=== PATIENT | female | born 1935 | race African-American/Black ===

== ENCOUNTER → 2018-05-27 | Outpatient (CLI) | payer OTHER, MEDICARE ==
[~2018-05-27] MED LIST: AMARYL2 MG PO; ASPIRIN EC81 M1 PO; BYSTOLIC10 MG PO; CELEBREX; CENTRUM TABLET1 TAB PO; FISH OIL 1,0001 EAC5 PO; GLUCOPHAGE1000 MG PO; HYDROCHLOROTHIA25 M1 PO; HYDROCODON-ACE1 EAC7 PO; LIPITOR40 MG PO; LISINOPRIL20 MG PO; MEDROLDOSEPACK PO; NAPROSYN250 MG PO; NORCO 5-325 TA1 EACH; NORVASC 2.5 MG2.5 MG PO; PERCOCET 5-3251 EACH PO; PROTONIX40 M2 PO; ROBAXIN 750 MG750 M1 PO; SYNTHROID100 MCG PO
== END ==
LOC: CAT 10:44
DX: M47.812 Spondylosis without myelopathy or radiculopathy, cervical region (principal); M48.02 Spinal stenosis, cervical region; R20.0 Anesthesia of skin; R29.898 Other symptoms and signs involving the musculoskeletal system; Z98.1 Arthrodesis status

== ENCOUNTER 2018-06-21 15:56 | Inpatient (IN) | payer OTHER, MEDICARE ==
[~2018-06-21] VITALS: Ht 162.6 cm; Wt 70.4 kg
[~2018-06-21 15:56] MED LIST changes: +AMARYL4 MG PO; +AMLODIPINE BESY10 MG PO; +CYCLOBENZAPRINE5 MG PO; +LOPRESSOR50 PO; +METFORMIN HCL500 MG PO; +SYNTHROID25 MC1 PO; +TRAMADOL 50 MG50 MG PO
--- NOTE | 2018-06-21 16:59 | NUR ---
1600 ADMITTED TO ROOM 514. PATIENT IS ALERT AND ORIENTED X4. PATIENT HAS LEFT AND RIGHT HAND WEAKNESS, WELL LOWER EXTREMITY WEAKNESS. PATIENT HAS A NECK COLLAR ON. LUNGS ARE CLEAR. ABD IS SOFT, AND ROUND WITH BSX4. UP TO THE BSC WITH ASSIST OF 2 STAFF. NO EDEMA IN HER LOWER EXTREMITIES. PATIENT IS DIABETIC AND ON LOW DOSE S.S. INSULIN. P.T. HERE TO DO EVAL. OT EVAL AND ST EVAL TO BE ON MON. DAUGHTER IN ROOM. FALL AND SAFETY PROTOCOLS IN PLace. PATIENT HAS PAIN IN HER NECK. MEDICATED WITH TRAMADOL PRIOR TO LEAVING [facility]. DRESSING TO NECK IS DRY AND INTACK. WILL CONTINUE TO MONITER.
[2018-06-21 21:30] VITALS: BP 133/72
--- NOTE | 2018-06-22 03:09 | NUR ---
assumed care at approx 1900 evening 06/21. pt lying in bed with head of bed elevated, alert and oriented x4 with c collar in place. pt stated she had not had a bm for several days. pt given supp at bedtime and pt has now had 2-3 small bms and 1 large bm. pt appears to be sleeping soundly at present. call light in reach. bed alarm in place. will continue to monitor.
[2018-06-22 04:27] LABS: HEMATOCRIT 35.7 % (37.0-47.0); HEMOGLOBIN 11.6 gm/dL (12.0-15.0); MCH 27.8 pg (26.0-34.0); MCHC 32.6 g/dL (28.0-37.0); MCV 85.3 fL (80.0-100.0); RBC 4.19 mil/uL (4.20-5.00); RDW 14.2 % (10.5-14.5); WBC 13.3 thou/uL (4.0-11.0)
[2018-06-22 04:38] LABS: CALCIUM 9.7 mg/dL (8.5-10.1); CREATININE 0.9 mg/dL (0.6-1.0); MAGNESIUM 1.6 mg/dL (1.8-2.4); POTASSIUM 3.5 mmol/L (3.5-5.1)
[2018-06-22 07:50] VITALS: BP 146/70
--- NOTE | 2018-06-22 09:35 | NUR ---
ASSUMED CARE AT 0700. PATIENT IS ALERT AND ORIENTED X4. PATIENT HAS C-COLLAR ON AND INPLACE. PATIENT UP TO THE W/C FOR BREAKFAST. PATIENT UP WITH ASSIST OF 1 STAFF, GAIT BELT AND WALKER TO THE BSC. LUNGS ARE CLEAR. ABD IS SOFT WITH BSX4. FALL AND SAFETY PROTOCOLS IN PLACE. DENIES PAIN AT THIS TIME. WILL CONTINUE TO MONITER. NECK DRESSING IS DRY AND INTACT.
[2018-06-22 20:55] VITALS: BP 143/74
--- NOTE | 2018-06-23 03:42 | NUR ---
PATIENT IS ALERT AND ORIENETED. PATIENT IS UP 1-2 WITH GAIT BELT AND WLAKER. PATIENT HAS AN INSICION ON ANTIEIOR NECK DRESSING CLEAN DRY INTACT. PATIENT WEARS A C-COLLOR PT AND OT CONSULTED. PATIENTS LBM WAS THE 26TH PER PATIENT THE 28TH PER NURSING STAFF. PATIENT DENIES PAIN. PATIENT IS RESTING COMFORTABLY IN BED. WCM. PATIENT IS PROGRESSING TO GOALS. WCM.
[2018-06-23 08:00] VITALS: BP 142/77
--- NOTE | 2018-06-23 09:31 | NUR ---
Nutrition: assess d/t consult for difficulty eating. Pt admitted following cervical surgery; hx of DM and HTN. Pt states that her appetite is fine, she just doesn't like some of the foods served. Explained how to order meals, obtained food preferences. She would like to have strawberry Glucerna, will order BID. With nutrition intervention in place, consider low risk at this time.
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
--- NOTE | 2018-06-23 14:26 | NUR ---
ASSUMED CARES AT 0700. PT AWAKE, ALERT AND ORIENTED *4 BUT FORGETFUL. VITALS REMAIN STABLE. PT DENIES PAIN. NECK COLLAR REMAINS INTACT AND IN PLACE. DRESSING ON ANTERIOR NECK REMAINS DRY AND INTACT. PT CONTINUES TO HAVE LEFT SIDED WEAKNESS, UNABLE TO GRASP WITH LEFT UPPER EXTREMITY. MILD EDEMA IN BLE. PT UP WITH 1 PERSON MIN ASSIST, GAITBELT AND WALKER. AMBULATED WITH PT AND TOLERATED WELL. Q1H VISUAL CHECKS. CALL LIGHT WITHIN REACH. FALL PRECAUTIONS IN PLACE
[2018-06-23 19:54] VITALS: BP 140/83
--- NOTE | 2018-06-24 03:55 | NUR ---
assumed care at approx 1900 evening 06/23. pt sitting up in recliner at change of shift resting and visiting with daughter at bedside. pt pleasant and cooperative, alert and oriented x4. pt wearing c collar at all times. pt up to bathroom to void with 1 assist before bedtime. pt appears to be sleeping soundly with hourly rounding checks. bed alarm on and call light in reach. will continue to monitor.
[2018-06-24 05:33] LABS: HEMATOCRIT 34.7 % (37.0-47.0); HEMOGLOBIN 11.5 gm/dL (12.0-15.0); MCH 28.1 pg (26.0-34.0); MCHC 33.2 g/dL (28.0-37.0); MCV 84.7 fL (80.0-100.0); RBC 4.09 mil/uL (4.20-5.00); RDW 13.8 % (10.5-14.5); WBC 9.2 thou/uL (4.0-11.0)
[2018-06-24 05:40] LABS: PLATELET COUNT 348 thou/uL (150-400)
[2018-06-24 05:55] LABS: CALCIUM 9.9 mg/dL (8.5-10.1); CREATININE 0.8 mg/dL (0.6-1.0); MAGNESIUM 1.5 mg/dL (1.8-2.4); POTASSIUM 3.7 mmol/L (3.5-5.1)
[2018-06-24 06:16] LABS: ABSOLUTE NEUTROPHILS 4.7 thou/uL (1.4-8.2)
[2018-06-24 06:17] LABS: ANISOCYTOSIS 1+; LARGE PLATELETS FEW; PLATELET ESTIMATE NORMAL; POLYCHROMASIA 1+
[2018-06-24 08:24] VITALS: BP 133/79
[2018-06-24 08:49] LABS: FOLIC ACID 16.6 ng/mL (8.6-58.9)
--- NOTE | 2018-06-24 10:04 | NUR ---
ASSUMED CARE AT 0700. PATIENT IS ALERT AND ORIENTED X4. PATIENT HAS C-COLLAR IN PLACE. PATIENT SCHERER'S. HANDS ARE WEAK, LEGS ARE WEAK. LUNGS ARE CLEAR. ABD IS SOFT WITH BSX4. UP TO THE BATHROOM TO VOID NADEGE COLORED URINE. FALL AND SAFETY PROTOCOLS IN PLACE. C/O NECK PAIN. MEDCIATED WITH PRN PAIN MED. CONTINUES TO PROGRESS TOWARDS D/C GOALS. WILL CONTINUE TO MONITER
--- NOTE | 2018-06-24 12:50 | NUR ---
team meeting, recommendation: re team with dc 07/07/18 initial 24hr supervision , home health ( pt, ot, st, nursing), daughter for family training
[2018-06-24 19:10] VITALS: BP 130/65
--- NOTE | 2018-06-25 04:12 | NUR ---
ASSUEMD CARE FROM PREVIOUS SHIFT PT VISITING WITH DAUGHTER, DNEIS PAIN C-COLLAR INTACT , PT CALL FOR ASSISSTANCETO BATHRROM WNEEDING ASSIST OF ONE TOLERATING AMBULATING WITHOUT DIFF. DISCUSSED PLAN CARE AND AGREEABLE AND VERBALIZED UNDERSTANDING.
[2018-06-25 07:30] VITALS: BP 122/76
--- NOTE | 2018-06-25 10:09 | NUR ---
ASSUMED CARES AT 0700. PT AWAKE, ALERT AND ORIENTED*4. DENIES PAIN. VITALS REMAINED STABLE. CERVICAL COLLAR REMAINS IN PLACE. INCISION ON ANTERIOR NECK REMAINS INTACT. STERI STRIPS REMAIN IN PLACE AND INTACT. PT UP WITH 1 PERSON MIN ASSIST, GAITBELT WALKER AND TOLERATED WELL. Q1H VISUAL CHECKS. CALL LIGHT WITHIN REACH. FALL PRECAUTIONS IN PLACE
--- NOTE | 2018-06-25 16:09 | NUR ---
Patient participated in community reintegration on 06/25/18 with OT. Refer to documentation by OT.
[2018-06-25 19:42] VITALS: BP 144/58
--- NOTE | 2018-06-26 01:07 | NUR ---
ASSUMED CARE AT APPROX 1900 EVENING 06/25. PT ALERT AND ORIENTED X4, APPROPRIATE AND COOPERATIVE. PT WEARING C COLLAR. PT UP TO TOILET WITH 1 ASSIST WITH WALKER. PT C/O HER LIPS SWOLLEN APPROX 2300 STATING SHE HAD SOME LETTUCE FOR DINNER AND SHE IS ALLERGIC TO IT. ORDER RECD FOR BENADRYL AND GIVEN TO PT. PT HAS NOT CALLED OUT SINCE AND APPEARS TO BE SLEEPING SOUNDLY AT PRESENT. BED ALARM ON AND CALL LIGHT IN REACH. WILL CONTINUE TO MONITOR.
--- NOTE | 2018-06-26 07:15 | NUR ---
PT CALLED OUT APPROX 0400 ASKING FOR MORE BENADRYL. BILLER CALLED AND ORDER RECD FOR ONETIME DOSE OF BENADRYL, 50MG PO. PT WITH INCREASED SWELLING TO LIPS AND CHEEK/FACIAL AREA. PT NOT COMPLAINING OF ANY TROUBLE BREATHING AND PT ABLE TO TAKE LIQUEFACTION AND REGASIFICATION HELPER MEDS WITH WATER WITH NO PROBLEM. PT ABLE TO REST AFTER 2ND DOSE OF BENADRYL GIVEN. C COLLAR NOT WITH ANY INCREASED TIGHTNESS AND PT DENIES INCREASED DISCOMFORT WITH COLLAR. PT RESTING IN BED AT PRESENT. REPORT GIVEN TO DAY NURSES. CALL LIGHT IN REACH.
[2018-06-26 08:41] VITALS: BP 137/76
--- NOTE | 2018-06-26 17:40 | NUR ---
ASSUMED CARE OF PATIENT AT 0715. PATIENT IS A&OX4 WITH PERIODS OF FORGETFULNESS, VITAL SIGNS ARE STABLE. PATIENT OBSERVED THIS MORNING TO HAVE SIGNIFICANT SWELLING IN THE LIPS AND CHEEKS, PATIENT ABLE TO MAINTAIN PATENT AIRWAY. PATIENT REPORTS THAT INCREASED SWELLING IS DUE TO HAVING EATEN LETTUCE, WHICH SHE STATED SHE IS ALLERGIC TO, ALLERGY LIST UPDATED WITH PATIENT AND ORDERS OBTAINED FOR REACTION. SWELLING DECREASED SIGNIFICANTLY THROUGHOUT SHIFT. CERVICAL COLLAR IN PLACE, STERI STRIPS TO INCISION ON NECK CLEAN, DRY, AND INTACT. PATIENT TRANSFERS AND AMBULATES WITH 1 PERSON ASSIST WITH GAIT BELT AND WALKER. PATIENT HAD DIFFICULTIES WITH SWALLOWING NOTED BY SPEECH THERAPIST AND MEDICAITONS ARE NOW BEING GIVEN ONE AT A TIME WITH APPLESAUCE, WHICH PATIENT HAS TOLERATED WELL. FALL PRECAUTIONS IN PLACE AND NURSING WILL CONTINUE TO MONITOR PATIENT.
[2018-06-26 20:13] VITALS: BP 122/77
--- NOTE | 2018-06-27 05:01 | NUR ---
UP TO BATHROOM WITH STEADY GAIT, KEEPS CERVICAL COLLAR ON AT ALL TIMES. ABLE TO SWALLOW MEDS WHOLE WITH APPLESAUCE WITH SIPS OF WATER AFTERWARDS. PLEASANT
[2018-06-27 07:30] VITALS: BP 124/76
--- NOTE | 2018-06-27 19:18 | NUR ---
ASSUMED CARE OF PATIENT AT 0715. PATIENT IS A&OX4 AND VITAL SIGNS ARE STABLE. PATIENT HAS CERVICAL COLLAR IN PLACE AND STERI STRIPS TO SURGICAL INCISION SITE ARE IN PLACE AND INCISION WELL APPROXIMATED. PATIENT EXPRESSED CONCERN THAT SHE WAS NOT ALLOWED TO HAVE COFFEE ON DIET, PASTEURIZER NOTIFIED OF CONCERN AND ORDERS CHANGED TO REGULAR DIET. PATIENT HAS HAD INCREASED DIFFICULTY WTIH SWALLOWING THIS SHIFT. ST CONSULTED AND DECISSION MADE TO CRUSH ALL MEDICATIONS IN APPLESAUCE D/T SIGNIFICANT COUGHING FOLLOWING MEDICATION ADMINISTRATION. PATIENT REPORTS NO PAIN AT THIS TIME, PARTICIPATED IN SCHEDULED THERAPIES THIS SHIFT. FALL PRECAUTIONS ARE IN PLACE AND NURSING WILL CONTINUE TO MONITOR PATIENT.
[2018-06-27 22:08] VITALS: BP 133/85
--- NOTE | 2018-06-28 01:26 | NUR ---
CRUSHING MEDS IN APPLESAUCE WITH PATIENT NOTING BITTER TASTE OF GABAPENTIN AND, WE THINK, METFORMIN. UP TO BATHROOM WITH STEADY GAIT, CERVICAL COLLAR ON AT ALL TIMES. BLOOD SUGAR >250 WAS TAKEN SOON AFTER EATING A STRAWBERRY MILKSHAKE FROM "[employer]" ENCOURAGED TO CALL FOR ASSIST UP, BED ALARM ON
[2018-06-28 09:02] VITALS: BP 149/87
--- NOTE | 2018-06-28 11:13 | NUR ---
ASSUMED CARES AT 0700. PT AWAKE, ALERT AND ORIENTED* 4 BUT FORGETFUL. DENIES PAIN. INCISION ON ANTERIOR NECK REMAINS INTACT AND CERVICAL COLLAR REMAINS IN PLACE. PT CONTINUES TO HAVE MILD BLE EDEMA, EXTREMITIES ELEVATED. VERY PICKY ABOUT MEALS, REFUSED HER BREAKFAST TRAY TODAY BUT DRANK ENSURE AND HAD APPLESAUCE. UP WITH 1 PERSON MIN ASSIST. FALL PRECAUTIONS IN PLACE. ROOM BY NURSING STATION. Q1H VISUAL CHECKS. CALL LIGHT WITHIN REACH
[2018-06-28 20:00] VITALS: BP 129/73
--- NOTE | 2018-06-29 05:37 | NUR ---
REMINDED ONCE OF NEED TO HAVE SBA WHEN UP TO BATHROOM. ACTUALLY NEEDS VERBAL CUES TO STEER WALKER. BRACE IN PLACE AT ALL TIME
[2018-06-29 07:55] VITALS: BP 140/91
--- NOTE | 2018-06-29 11:11 | NUR ---
ASSUMED CARES AT 0700. PT AWAKE, ORIENTED *3, FORGETFUL AND VERY ANXIOUS. PT IMPULSIVE THIS AM, REORIENTED AND FREQUENT VISUAL CHECKS. CONTINUES TO HAVE LEFT SIDED WEAKNESS. NECK INCISION REMAINS INTACT, STERI STRIPS IN PLACE. CERVICAL COLAR IN PLACE. SKIN REMAINS INTACT. PT UP WITH MIN ASSIST, GAITBELT AND WALKER. AMBULATED WITH PT AND TOLERATED WELL. CALL LIGHT WITHIN REACH. FALL PRECAUTIONS IN PLACE
[2018-06-29 20:00] VITALS: BP 107/64
--- NOTE | 2018-06-30 04:13 | NUR ---
assumed care at approx 1900 evening 06/29. pt sitting up at change of shift visiting with daughter at bedside. pt alert and oriented x4, appropriate and cooperative. pt took hs meds with water tolerating well. pt up to bsc to void with 1 assist. pt appears to be sleeping soundly with hourly rounding checks. bed alarm on and call light in reach. will continue to monitor.
[2018-06-30 09:07] VITALS: BP 144/90
--- NOTE | 2018-06-30 12:45 | NUR ---
ASSUMED CARE OF PT AT 0715. PT IS A&OX4. IS STABLE. IS ON ROOM AIR. DENIES NECK PAIN. HAS C-COLLAR INPLACE. STIRRI STRIPS INTACT. PT IS UP WITH 1 ASSIST, GB, WALKER. FALL PRECAUTIONS & HOURLY ROUNDING MAINTAINED. PT CAN BE IMPULSIVE. IS ACCROSS FROM NURSE STATION. HAS NOT HAD A BM FOR A FEW DAYS. THIS NURSE TO ADMINISTER LAXITIVE. PT IS ENCOURAGED TO ORDER FOOD & HAVE DAUGHTER BRING UP MEALS. PT STATED, "I WANT SOME SOULD FOOD. I JUST DON'T LIKE THIS FOOD". LABS & VITALS REVIEWED. PT IS CURRENTLY IN ROOM, IN RECLINER, WATCHING TV. CALL LIGHT WITHIN REACH. WILL CONTINUE TO MONITOR.
--- NOTE | 2018-06-30 13:07 | NUR ---
Nutrition: pt seen per followup on rehab unit. Pt now on regular diet. Does not like some foods here but orders meals. Also dtr has been encouraged to bring in outside foods. Will not provide food preferences. Stable weights reported. No new weight since admit. Drinks supplements. BG 83-251 but mostly WNL. Will offer glucerna instead of ensure. Monitor BG for need to add back carb controlled. Low nutrition risk.
[2018-06-30 19:30] VITALS: BP 145/73
--- NOTE | 2018-06-30 20:49 | HC ---
[facility] [place] [address] CONSULTATION Name: CARTER ALMANZAR Room #: 514-P [facility] IN M.R.#: [id number] Admission: 06/21/18 ������������������ Attend Phys: Otis Ball MD Discharge: ������������������ Date of : 34 Report #: [id number] THIS REPORT FOR: //name// CC: Otis Ball Silke Wolfe DATE OF SERVICE: 06/28/2018 ATTENDING PHYSICIAN: Otis Ball MD. NET MENDER: Silvano Frias, PhD. CLINICAL PRESENTATION: The patient is an 83-year-old female admitted to the rehabilitation unit at [facility] for comprehensive inpatient rehabilitation program for evaluation and treatment of a central cord syndrome. She carries diagnoses that include cervical myelopathy at C3-C4, neuropathic pain, bilateral upper extremities, gait impairment, diabetes mellitus type 2 non-insulin dependent, cervical spondylosis with cervical stenosis and subsequent myelopathy, hypothyroidism and anticoagulation. A complete description of her medical condition and history can be found in her medical record. Neuropsychological consultation was requested to provide assistance in the assessment of cognitive and emotional status and to provide recommendations and services. Prior to this most recent admission, she reports being independent with instrumental activities of daily living including driving. She stated that she suffered injury to her neck when she was opening her trunk and the trunk fell striking the back of her head and neck. She has been living alone. She is and had 4 children. Her son is . She has a 12th grade education and no specific occupation, but reports having worked in a variety of different jobs. The patient is vague in her ability to describe specific aspects of her history. She does not report prior history of treatment for anxiety or depression. TECHNIQUES UTILIZED: Clinical interview, review of medical records, staff consultation and behavioral observation and mini mental status exam. EXAMINATION FINDINGS: The patient was alert and cooperative with the assessment. However, she appeared to become increasingly irritable with the challenge of the mental status exam. Statements were frequently made indicated her desired to return home [place]. She reports having been very active prior to this most recent medical event. She does not report difficulty with sleep, word finding or depression. Decreased appetite, tiredness and fatigue, difficulty with memory and anxiety are reported. Her performance on the MMSE 2 brief version was extremely low with a raw score [facility] [address] [place] [address] CONSULTATION Name: CARTER ALMANZAR Room #: 514-P [facility] IN M.R.#: [id number] Admission: 06/21/18 ������������������ Attend Phys: Otis Ball MD Discharge: ������������������ Date of : 34 Report #: [id number] of 8 of 16. She was 3 of 3 for initial registration, 4 of 5 for orientation to time, 1 of [address] and 0 of 3 for immediate recall of 3 items with a delayed and brief distraction. Her performance on the MMSE 2 standard version was extremely low with a raw score 16 of 30. She was 0 of 5 for serial sevens, 2 of 2 for naming, 1 of 1 for repetition, 3 of 3 for auditory comprehension. She could read and follow single command and write a sentence. The patient had difficulty with copying a simple geometric design. She frequently stated that she just wanted to go home. She was unable to accurately complete clock drawing. The patient is presenting with [id number] impairment with cognition and decreased insight into the severity of her cognitive deficits. Impairment includes immediate memory associated with consolidation and retrieval, sustained concentration and attention and visual spatial construction. DIAGNOSTIC IMPRESSION: Neurocognitive disorder, unspecified -- extent to be determined, likely in the [id number] range with decreased insight. Unspecified anxiety disorder. RECOMMENDATIONS: The patient will need assistance in the management of medication, finances and nutrition. Speech therapy will be helpful in assisting with compensatory strategies to improve functional independence as possible. A followup Neuropsych assessment upon her discharge home may be of benefit to clarify the severity of her cognitive deficits. Verbal compliments about her participation in therapies along with identifying specific areas of improved functioning will be helpful. Her family will need to be contacted in order to recognize the extent of help that she is needing and their availability to provide that level of environmental support. Thank you very much for allowing me to provide the consultation on this patient. ��������������������������������������������� <ELECTRONICALLY SIGNED> ���������������������������������������� By: Silvano Frias, PhD ��������������������������������������������� 06/30/18 2049 [id number] Silvano Frias, PhD /nt
--- NOTE | 2018-07-01 01:40 | NUR ---
assumed care at approx 1900 evening 06/30. pt sitting up in recliner at change of shift resting and visiting with daughter at bedside. pt in good mood, denies complaints. pt stated she has not had a bm for several days but feels it coming on and declining bowel meds. pt did have small bm before falling asleep flushing it down toilet. pt with c collar in place. pt appears to be sleeping soundly. bed alarm on and call light in reach. will continue to monitor.
[2018-07-01 07:30] VITALS: BP 147/82
--- NOTE | 2018-07-01 11:19 | NUR ---
ASSUMED CARE AT 0700. PATIENT IS ALERT AND ORIENTED 2. PATIENT SCHERER'S, CRISIS THERAPIST ARE WEAK. NECK COLLAR IN TACK. PATIENT ACF INCISION CONTINUES TO HEAL. L.E. ARE WEAK. PATIENT LUNGS ARE CLEAR. ABD IS SOFT WITH BSX4. PATIENT GIVEN MAG CITRATE TO FACILITATE BM. UP TO THE BATHROOM TO VOID NADEGE COLORED URINE. FALL AND SAFETY PROTOCOLS IN PLACE. DENIES ANY PAIN AT THIS TIME. CONTINUES TO PROGESS TOWARDS D/C GOALS. WILL CONTINUE TO MONITER.
--- NOTE | 2018-07-01 12:21 | NUR ---
I have reviewed the documentation by ASHLEY REYNOSO from 07/01/18 to 07/01/18 and I concur with it. SHAYLA DODGE
--- NOTE | 2018-07-01 12:32 | NUR ---
team meeting, recommendation : cont with dcp 07/07/18 hh ( pt, ot, st, nursing), cont wear cervical collar. no driving until cleared with pcp, initial 24 supervision, medication, bills management, supervision with cooking. outpt neuro psych. family training at 1300 on 07/03/18.
[2018-07-01 21:30] VITALS: BP 114/54
--- NOTE | 2018-07-02 00:54 | NUR ---
PT ALERT AND ORIENTED X 2. AMB TO BR WITH WALKER AND ASSIST X 1 WITHOUT DIFFICULTY. LEFT NECK INCISION C/D/I WITH STERI-STRIPS. PT REFUSED COLACE AT HS. PT DENIES PAIN OR DISCOMFORT. BED ALARM ON FOR SAFETY. PT APPEARS TO BE SLEEPING ON HOURLY ROUNDS.
[2018-07-02 04:14] LABS: CALCIUM 9.4 mg/dL (8.5-10.1); CREATININE 0.9 mg/dL (0.6-1.0); MAGNESIUM 1.4 mg/dL (1.8-2.4); POTASSIUM 4.1 mmol/L (3.5-5.1)
[2018-07-02 04:35] LABS: HEMOGLOBIN 10.9 gm/dL (12.0-15.0); MCH 27.5 pg (26.0-34.0); MCHC 32.2 g/dL (28.0-37.0); MCV 85.5 fL (80.0-100.0); RBC 3.98 mil/uL (4.20-5.00); RDW 13.8 % (10.5-14.5); WBC 12.1 thou/uL (4.0-11.0)
--- NOTE | 2018-07-02 06:47 | NUR ---
PT C/O FEELING JITTERY THIS MORNING. BLOOD SUGAR 80. PT ALERT AND APPROPRIATE. SKIN WARM AND DRY. CRACKERS GIVEN TO PT PER HER REQUEST.
[2018-07-02 08:00] VITALS: BP 126/68
--- NOTE | 2018-07-02 12:58 | NUR ---
ASSUMED CARE AT 0700. PATIENT IS ALERT AND ORIENTED X2, AND FORGETFUL AT TIMES. PATIENT SCHERER'S. BONDERIZER ARE WEAK FLIP. PATIENT IS UP WITH ASSIST OF 1 STAFF, GAIT BELT AND WALKER TO THE BATHROOM TO VOID NADEGE COLORED URINE. UP IN CHAIR FOR MEALS. FALL AND SAFETY PROTOCOLS IN PLACE. DENIES ANY PAIN AT THIS TIME. WILL CONTINUE TO MONITER.
--- NOTE | 2018-07-02 13:08 | NUR ---
cm visited with pt and left home health choice and senior blue book with pt at beside to go over with her daughter candie.
--- NOTE | 2018-07-02 15:45 | NUR ---
I have reviewed the documentation by ASHLEY REYNOSO from 07/02/18 to 07/02/18 and I concur with it. ARA MALDONADO
[2018-07-02 19:53] VITALS: BP 115/67
--- NOTE | 2018-07-03 01:40 | NUR ---
PT ALERT AND ORIENTED X 2. AMB TO BR WITH WALKER AND ASSIST X 1 WITHOUT DIFFICULTY. C-COLLAR ON AT ALL TIMES. LEFT NECK INCISION C/D/I WITH STERI-STRIPS. PT DENIES PAIN OR DISCOMFORT. BED ALARM ON FOR SAFETY. PT APPEARS TO BE SLEEPING ON HOURLY ROUNDS.
[2018-07-03 08:17] VITALS: BP 154/80
--- NOTE | 2018-07-03 14:42 | H ---
[facility] [place] [address] HISTORY AND PHYSICAL Name: CARTER ALMANZAR Room #: 514-P ADM IN M.R.#: [id number] Admission: 06/21/18 ������������������ Attend Phys: Otis Ball MD Discharge: ������������������ Date of : 33 Report #: [id number] THIS REPORT FOR: //name// CC: Otis Ball Silke Wolfe DATE OF SERVICE: 06/22/2018 ATTENDING PHYSICIAN: Otis Ball MD NOTE: I am covering for Dr. Ball today and therefore completing this history and physical. CHIEF COMPLAINT: Weakness. HISTORY OF PRESENT ILLNESS: The patient is a very pleasant 83-year-old left-hand dominant female who was admitted to [facility] on 06/11/2018 for an elective cervical spine surgery by Dr. Trimble. Records indicate that before surgery she was having difficulty feeding herself. She had difficulty with pain control postoperatively as well as nausea and vomiting. Additional issues include nausea and vomiting and dizziness. She was able to be weaned off of IV meds and is now tolerating oral pain medications. She is visited by her family today in the room. Additional problems include moderate to severe hypomagnesemia. Her diabetic blood sugar control has been reported to be stable. She is currently on an aspirin daily for anticoagulation. There is concern that she will need additional assistance before returning home. She has a great deal of weakness in her hands and she states that she cannot walk very well. Secondary to a decline in her overall function and the need for rehabilitation management, she is now being admitted to the rehabilitation program for comprehensive therapies. 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 SOCIAL HISTORY: She lives alone in her own home. She has multiple steps to climb in the home. She reports about 6 steps to get in, 6 steps inside and then another 8 steps to get to another level in her home. She reports that she did not use an assistive device to ambulate before admission and she reports that she drove before admission. ALLERGIES: No known drug allergies. [address] [address] HISTORY AND PHYSICAL Name: CARTER ALMANZAR Room #: 514-P [facility] IN M.R.#: [id number] Admission: 06/21/18 ������������������ Attend Phys: Otis Ball MD Discharge: ������������������ Date of : 34 Report #: [id number] MEDICATIONS: Reviewed, note she is getting an aspirin 81 mg daily. She takes gabapentin 100 mg b.i.d. FAMILY HISTORY: Reports a history of diabetes. REVIEW OF SYSTEMS: As above. Specifically, she denies chest pain, shortness of breath, fevers and chills, headaches, bowel or bladder changes. Otherwise, remainder of 12-point review is negative except for what is stated above. PHYSICAL EXAMINATION: GENERAL: No acute distress, well developed, well nourished, afebrile. CARDIOVASCULAR: Pulses are 2+ and regular. LUNGS: Aerating well. ABDOMEN: Soft, nontender, nondistended, positive bowel sounds. EXTREMITIES: Calves are nontender. Homans sign is negative. No edema. SKIN: Intact. LYMPHATICS: No cervical adenopathy. MUSCULOSKELETAL: Functionally, she has a very weak assembler latches and springs bilaterally measuring 2/5, bilaterally she has difficulty with wrist extension measuring 2/5. Her left arm shoulder flexion is graded at 2/5 and right arm shoulder flexion 3/5. Strength in the lower extremities measures 4/5 in the left proximal lower extremity and left ankle dorsiflexion; 5/5 strength in the right lower extremity proximally and with ankle dorsiflexion. Normal tone. No muscle atrophy. NEUROLOGIC/PSYCHIATRIC: Coordination is fair. Muscle stretch reflexes are 1/4 and symmetric. Sensation is diminished in her feet bilaterally as well as in her hands, especially in the palms. She is alert and able to answer my questions, but I question some of the history she provided me, which contradicts a portion of the history that I was able to obtain from her medical record. Pleasant and cooperative. Mood is good. No anxiety noted. IMPRESSION: Mobility and self-care deficits in an 83-year-old left-hand dominant female secondary to: 1. Central cord syndrome. 2. Cervical myelopathy at the C3-C4 level. 3. Neuropathic pain, bilateral upper extremities. 4. Gait impairment. 5. Diabetes mellitus type 2, non-insulin dependent. 6. Cervical spondylosis with cervical stenosis and subsequent myelopathy. 7. Hypothyroidism. 8. Anticoagulation. Currently, the patient is receiving aspirin 81 mg daily. I note from Internal Medicine that there are plans to put her on subcutaneous Lovenox. I will defer this to Dr. Nella Zavaleta who is following for medical management. PLAN: 1. Admit to the rehabilitation unit for comprehensive therapies. [address] [address] HISTORY AND PHYSICAL Name: CARTER ALMANZAR Room #: 514-P ADM IN M.R.#: [id number] Admission: 06/21/18 ������������������ Attend Phys: Otis Ball MD Discharge: ������������������ Date of : 34 Report #: [id number] 2. Discussed the rehabilitation program in detail with her and her family and they are in agreement with the program. 3. We will work with her therapy team to develop the most appropriate physical therapy and occupational therapy program needed for her optimal recovery. 4. Weekly team conferences to discuss her rehabilitation progress. POST-ADMISSION PHYSICIAN EVALUATION: A post-admission physician evaluation has been completed. The patient's preadmission screening was reviewed in its entirety. The current clinical status is supported by the information contained within. The patient is an appropriate candidate to undergo a comprehensive inpatient rehabilitation program consisting of daily physical and occupational therapy 3 hours a day for at least 5 days a week. Furthermore, nothing has changed since the preadmission screen was completed to suggest that the patient would not be able to tolerate or benefit from the rehabilitation program. It is my opinion that inpatient rehabilitation is reasonable and necessary and is more appropriate for the patient due to her neurological issues and multiple medical needs requiring comprehensive followup care. Three visits a week at a minimum by Physiatry is required to guide her rehabilitation efforts. The patient is at risk for clinical complications during participation in rehabilitation. She is at risk for DVT, further injury to her cervical spine and worsening of her medical condition. It would not be safe for her to be at home. My plan to manage her medical conditions, which could impact her participation in rehabilitation, is to continue to work with Internal Medicine and to provide neuropsychiatric consultation to ensure that her cognitive status is not affected by her recent surgery and administration of narcotic medications. She does live alone and I am concerned about her safety awareness in the home setting. INDIVIDUALIZED OVERALL PLAN OF CARE, SUMMARIZATION OF FINDINGS: The patient is receiving an inpatient rehabilitation program due to her functional impairments that are outlined above. Identified interventions include physical therapy, occupational therapy, case management, rehabilitation nursing and neuropsychiatric services as well as Internal Medicine management to address her mobility and self-care deficits, cognitive impairments, ensure that her swallowing function is not involved and speech therapy will be helpful if this is found to be the case. Physical Medicine and Rehabilitation will provide management of rehabilitation care plan. Internal Medicine will follow her multiple medical issues as outlined above. Rehabilitation nursing care 24 hours a day for care needs, social welfare administrator for discharge planning and medical equipment needs. ESTIMATED LENGTH OF STAY: Approximately 10-[address] [address] HISTORY AND PHYSICAL Name: CARTER ALMANZAR Room #: 514-P [facility] IN M.R.#: [id number] Admission: 06/21/18 ������������������ Attend Phys: Otis Ball MD Discharge: ������������������ Date of : 34 Report #: [id number] ANTICIPATED FUNCTIONAL OUTCOME: Modified independent with mobility and self-care skills. ANTICIPATED DISCHARGE DESTINATION: Home with family assistance. She reports that she does have good friends and family that can assist her when she does get home. She also will likely need home health services to help with the transition. MEDICAL PROGNOSIS: Good. She will continue to receive followup care. Internal Medicine will follow as well as Physiatry to address the functional deficits and management of her rehabilitation program. ANTICIPATED THERAPIES: Physical and occupational therapy, possibly speech therapy 3 hours a day 5 days a week for an anticipated duration of 10-14 days. SUMMARIZATION OF TREATMENT PLAN: The patient will continue to receive an inpatient rehabilitation program as outlined above in an effort to improve her overall function and return home at a modified independent level within 10-[address] Ball will be back in the office tomorrow and will continue to follow her rehabilitation. I will sign out the case to him and to his nurse practitioner, Lisa Kelley. ��������������������������������������������� <ELECTRONICALLY SIGNED> ���������������������������������������� By: Otis Ball MD ��������������������������������������������� 07/03/18 [id number] Hollis Pressley DO /nt
--- NOTE | 2018-07-03 15:04 | NUR ---
PATIENT ALERT AND ORIENTED AND COOPERATIVE WITH CARE PLAN. PATIENT SOMETIMES IMPULSIVE. PLAN TO DC ON SATURDAY. FAMILY AT BEDSIDE IN AFTERNOON FOR PATIENT MEETING.
--- NOTE | 2018-07-03 20:23 | NUR ---
ASSUMED CARE @ 19:15. A&OX4. SITTING IN CHAIR IN ROOM. WEARING OWN GOWN, ROBE. DENIES ADDITIONAL NEEDS. ASKED FOR HELP TIGHTEINING CERVICAL COLLAR. WILL CONTINUE TO MONITOR.
[2018-07-03 21:11] VITALS: BP 158/92
[2018-07-04 05:26] LABS: HEMATOCRIT 33.2 % (37.0-47.0); HEMOGLOBIN 10.9 gm/dL (12.0-15.0); MCH 27.9 pg (26.0-34.0); MCHC 32.8 g/dL (28.0-37.0); MCV 85.1 fL (80.0-100.0); RBC 3.91 mil/uL (4.20-5.00); RDW 13.8 % (10.5-14.5)
[2018-07-04 08:00] VITALS: BP 109/58
--- NOTE | 2018-07-04 09:16 | NUR ---
I have reviewed the documentation by ASHLEY REYNOSO from 07/03/18 to 07/03/18 and I concur with it. SHAYLA DODGE
--- NOTE | 2018-07-04 09:48 | NUR ---
cm notified that pt and daughter candie had question rt dcp. cm visited with pt, and candie. pt was working with pt therapy. question about setting up hh. re-education, hh list and senior blue book referred to and picking hh and cm team to send referral. " i will look at list and let you know, thank you"/candie. per heri 1st [facility], 2nd a and 3rd would be [facility], and " let me know if need to look into different hh"/candie. cm team sent referral to [facility]. will cont following as needed for dc needs.
--- NOTE | 2018-07-04 16:24 | NUR ---
I have reviewed the documentation by ASHLEY REYNOSO from 07/04/18 to 07/04/18 and I concur with it. SHAYLA DODGE
--- NOTE | 2018-07-04 19:36 | NUR ---
PATIENT ALERT AND ORIENTED WITH FAMILY PERIODICALLY DURING THE DAY. PATIENT VERY INDEPENDANT AND LIKES TO EAT MEALS IN ROOM. PATIENT ANTICIPATE DC ON SATURDAY.
[2018-07-04 19:52] VITALS: BP 153/74
--- NOTE | 2018-07-05 03:38 | NUR ---
PATIENT LEAVES CERVICAL COLLAR ON AT ALL TIMES. DOES NOT USE CALL LIGHT TO CALL FOR SBA UP TO TOILET, SO CHAIR ALARM OR BED ALARM IS ON AT ALL TIMES. HAD SOFT BM LAST EVENING HENCE SHE DECLINED HER COLACE. PLEASANT
--- NOTE | 2018-07-05 08:03 | NUR ---
ASSUMED CARE AT 0700. PATIENT IS ALERT AND ORIENTED X1-2. PATIENT SCHERER'S, ELECTRICIAN ELEVATOR MAINTENANCE ARE WEAK. PATIENT ACF COLLAR ON AND INTACT. LUNGS ARE CLEAR. ABD IS SOFT WITH BSX4. UP ON SIDE OF BED FOR BREAKFAST. PATIENT IS UP WITH ASSIST OF 1 STAFF, GAIT BELT AND WALKER TO THE BATHROOM TO VOID NADEGE COLORED URINE. FALL AND SAFETY PROTOCOLS IN PLACE. DENIES ANY PAIN AT THIS TIME. CONTINUES TO PROGRESS TOWARDS D/C GOALS. WILL CONTINUE TO MONITER.
[2018-07-05 08:50] VITALS: BP 145/80
[2018-07-05 19:30] VITALS: BP 147/76
[2018-07-06 08:15] VITALS: BP 130/77
--- NOTE | 2018-07-06 10:19 | NUR ---
ASSUMED CARE AT 0700. PATIENT IS ALERT AND ORIENTED X1-2. PATIENT SCHERER'S, COMPUTER VIDEO GAME DESIGNER ARE EQUAL . ACF BRACE IN PLACE. INCISION HAS STERI STRIPS IN PLACE. LUNGS are CLear. ABD IS SOFT WITH BSX4. UP WITH WALKER AND GAIT BELT TO BATHROOM TO VOID. FALL AND SAFETY PROTOCOLS IN PLACE. DENIES ANY PAIN. CONTINUES TO PROGRESS TOWARDS D/C GOALS. WILL CONTINUE TO MONITER.
[2018-07-06 19:40] VITALS: BP 131/61
--- NOTE | 2018-07-07 01:13 | NUR ---
PT ALERT AND ORIENTED X 2. AMB TO BR WITH WALKER AND ASSIST X 1 WITHOUT DIFFICULTY. C-COLLAR ON AT ALL TIMES. LEFT NECK INCISION C/D/I WITH STERI-STRIPS. PT DENIES PAIN OR DISCOMFORT. SLEEPING IN RECLINER. CHAIR ALARM ON FOR SAFETY. PT APPEARS TO BE SLEEPING ON HOURLY ROUNDS.
[2018-07-07 07:30] VITALS: BP 128/74
--- NOTE | 2018-07-07 07:57 | NUR ---
ASSUMED CARE AT 0700. PATIENT IS ALERT AND ORIENTED X 2. PATIENT HAS ACF COLLAR ON AND IN PLACE. PATIENT SCHERER'S. SENIOR BUSINESS MANAGER ARE EQUAL. PATIENT SCHERER'S. LUNGS ARE CLEAR. ABD IS SOFT WITH BSX4. FALL AND SAFETY PROTOCOLS IN PLACE. DENIES ANY PAIN. CONTINUES TO PROGESS TOWARDS D/C GOALS. PLAN IS FOR D/C TO HOME TODAY. WILL CONTINUE TO MONITER.
[2018-07-07] MEDS ORDERED: MAGOX 400400 MG PO ×2 (09:01→10:43)
[2018-07-07] MEDS ORDERED: COLACE100 MG PO ×2 (09:01→10:43)
[2018-07-07] MEDS ORDERED: GABAPENTIN 100100 MG PO ×2 (09:01→10:43)
[2018-07-07] MEDS ORDERED: VITAMIN B-12500 MCG PO (09:01)
[2018-07-07] MEDS ORDERED: MIRALAX17 GM PO ×2 (09:01→10:43)
--- NOTE | 2018-07-07 10:23 | NUR ---
[address] [address] [address]. pt to dc home today with [facility] ( pt, ot, nursing and Sw). will cont following as needed for dc needs dcp home with [facility]
[2018-07-07 10:24] VITALS: BP 128/74
[2018-07-07 10:38] VITALS: BP 128/74
--- NOTE | 2018-07-07 11:43 | NUR ---
DISCHARGE INSTRUCTIONS AND SCRIPTS REVIEWED WITH PATIENT AND DAUGHTER MICHAEL HARDING. PATIENT AND DAUGHTER VERBALIZED UNDERSTANDING . PATIENT LEFT UNIT IN W/C AND D/C'D TO [facility] FOR [facility] WITH HOMEHEALTH CARE.
== END 2018-07-07 11:45 | disposition home health service (06) | DRG 92 ==
PROVIDERS: Nurse Practitioner; Nurse Practitioner Family; ADMIT Physical Medicine & Rehabilitation
DX: G83.82 Anterior cord syndrome (principal); M47.12 Other spondylosis with myelopathy, cervical region; I10 Essential (primary) hypertension; M48.02 Spinal stenosis, cervical region; M47.22 Other spondylosis with radiculopathy, cervical region; M25.512 Pain in left shoulder; E78.5 Hyperlipidemia, unspecified; E11.42 Type 2 diabetes mellitus with diabetic polyneuropathy; E83.42 Hypomagnesemia; M48.061 Spinal stenosis, lumbar region without neurogenic claudication; R11.2 Nausea with vomiting, unspecified; K59.00 Constipation, unspecified; T78.1XXA Other adverse food reactions, not elsewhere classified, initial encounter; E03.9 Hypothyroidism, unspecified; X58.XXXA Exposure to other specified factors, initial encounter; T38.0X5A Adverse effect of glucocorticoids and synthetic analogues, initial encounter; Y92.89 Other specified places as the place of occurrence of the external cause; Z98.1 Arthrodesis status; Z79.82 Long term (current) use of aspirin; Z90.710 Acquired absence of both cervix and uterus; Z79.84 Long term (current) use of oral hypoglycemic drugs; Z79.899 Other long term (current) drug therapy; Z83.3 Family history of diabetes mellitus
CPT/HCPCS: 10112